=== PATIENT | male | born 1980 | race American Indian/Alaskan Native ===

== ENCOUNTER 2016-07-15 07:43 | Emergency (ER) | payer SELFPAY ==
[2016-07-15] MEDS ORDERED: TORADOL IM ONE (10:36)
[2016-07-15] MEDS ORDERED: DECADRON IM ONE (10:36)
[2016-07-15] MEDS ORDERED: CATAPRES PO ONE (10:36)
[2016-07-15] MEDS ORDERED: REGLAN IV ONE (11:30)
[2016-07-15 11:50] VITALS: BP 144/98
--- NOTE | 2016-07-15 11:58 | Emergency Department Report ---
ED General Adult HPI - General Chief complaint: Extremity Injury, Lower Stated complaint: LT ANKLE SWOLLEN Time Seen by Provider: 07/15/16 10:30 Source: patient Mode of arrival: Ambulatory Limitations: No Limitations - History of Present Illness Initial comments: 36-year-old male with history of uncontrolled hypertension presents to the ED complaining about swelling to the right ankle with associated pain. Patient denies injury. Patient states it is painful to walk on. A zapien denies erythema , induration, fever. -: Gradual, days(s) (2) Severity scale (0 -10): 8 - Related Data Previous Rx's Medication Instructions Recorded Last Taken Type Acetaminophen/Codeine [Tylenol 1 tab PO Q6H PRN #14 tab 07/15/16 Unknown Rx /Codeine # 3 tab] Diclofenac Sodium 75 mg PO BID #20 tablet. 07/15/16 Unknown Rx Allergies Allergy/AdvReac Type Severity Reaction Status Date / Time No Known Allergies Allergy Verified 04/29/16 17:02 ED Review of Systems ROS: Stated complaint: LT ANKLE SWOLLEN Other details as noted in HPI Constitutional: denies: chills, fever Eyes: denies: eye pain, eye discharge, vision change ENT: denies: ear pain, throat pain Respiratory: denies: cough, shortness of breath, wheezing Cardiovascular: denies: chest pain, palpitations Endocrine: no symptoms reported Gastrointestinal: denies: abdominal pain, nausea, diarrhea Genitourinary: denies: urgency, dysuria Musculoskeletal: joint swelling, arthralgia. denies: back pain Skin: denies: rash, lesions Neurological: denies: headache, weakness, paresthesias Psychiatric: denies: anxiety, depression Hematological/Lymphatic: denies: easy bleeding, easy bruising ED Past Medical Hx - Past Medical History Previous Medical History?: No - Surgical History Past Surgical History?: No - Social History Smoking Status: Current Every Day Smoker Substance Use Type: Alcohol - Medications Home Medications: Home Medications Medication Instructions Recorded Confirmed Last Taken Type Acetaminophen/Codeine [Tylenol 1 tab PO Q6H PRN #14 tab 07/15/16 Unknown Rx /Codeine # 3 tab] Diclofenac Sodium 75 mg PO BID #20 tablet. 07/15/16 Unknown Rx ED Physical Exam - General Limitations: No Limitations General appearance: alert, in no apparent distress - Head Head exam: Present: atraumatic, normocephalic - Eye Eye exam: Present: normal appearance - ENT ENT exam: Present: mucous membranes moist - Neck Neck exam: Present: normal inspection - Respiratory Respiratory exam: Present: normal lung sounds bilaterally. Absent: respiratory distress - Cardiovascular Cardiovascular Exam: Present: regular rate, normal rhythm. Absent: systolic murmur, diastolic murmur, rubs, gallop - GI/Abdominal GI/Abdominal exam: Present: soft, normal bowel sounds - Rectal Rectal exam: Present: deferred - Extremities Exam Extremities exam: Present: normal inspection - Expanded Lower Extremity Exam Right Lower Leg exam: Present: normal inspection, full ROM Ankle exam: Present: full ROM, tenderness, swelling. Absent: abrasion, laceration, ecchymosis, deformity, crepidus, dislocation, erythema Foot/Toe exam: Present: normal inspection, full ROM - Back Exam Back exam: Present: normal inspection - Neurological Exam Neurological exam: Present: alert, oriented X3 - Psychiatric Psychiatric exam: Present: normal affect, normal mood - Skin Skin exam: Present: warm, dry, intact, normal color. Absent: rash ED Course Vital Signs 07/15/16 07/15/16 07/15/16 07:59 10:50 11:50 Temperature 98.2 F Pulse Rate 72 96 H Respiratory 17 18 20 Rate Blood Pressure 177/127 177/122 Blood Pressure 144/98 [Left] O2 Sat by Pulse 96 Oximetry ED Medical Decision Making - Lab Data Vital Signs 07/15/16 07/15/16 07/15/16 07:59 10:50 11:50 Temperature 98.2 F Pulse Rate 72 96 H Respiratory 17 18 20 Rate Blood Pressure 177/127 177/122 Blood Pressure 144/98 [Left] O2 Sat by Pulse 96 Oximetry - Medical Decision Making Patient's vital signs improved to the ED per clonidine. Patient's symptoms appear to correlate with gout with no apparent injury. No signs of septic joint. Full range of motion Critical care attestation.: If time is entered above; I have spent that time in minutes in the direct care of this critically ill patient, excluding procedure time. ED Disposition Clinical Impression: Right ankle pain, Right ankle swelling Disposition: DISCHARGED TO HOME OR SELFCARE Is pt being admited?: No Does the pt Need Aspirin: No Condition: Good Instructions: Arthralgia (ED) Additional Instructions: Take medication as prescribed. Apply cool compress over affected joint. Follow -up with orthopedist if symptoms persist. Return to the ED if symptoms worsen. Prescriptions: Acetaminophen/Codeine [Tylenol /Codeine # 3 tab] 1 tab PO Q6H PRN #14 tab PRN Reason: Pain Diclofenac Sodium 75 mg PO BID #20 tablet. Referrals: PRIMARY CARE, [Primary Care Provider] - 3-5 Days MAIKOL JAMES MD [Staff Physician] - 3-5 Days Forms: Work/School Release Form(ED) Time of Disposition: 11:57
== END 2016-07-15 12:11 | disposition home or self-care (01) ==
LOC: ED 07:43
DX: M25.571 Pain in right ankle and joints of right foot (principal); M79.89 Other specified soft tissue disorders; F17.200 Nicotine dependence, unspecified, uncomplicated
CPT/HCPCS: 96372; 99282; J1100; J1885

== ENCOUNTER 2016-07-29 19:24 | Emergency (ER) | payer SELFPAY ==
[2016-07-29 19:38] VITALS: BP 200/124
--- NOTE | 2016-08-02 16:01 | ED Elopement Review ---
ED Pt Elopement review - Call Back decision Pt Call Back Decision: No action required
== END 2016-07-30 00:15 | disposition left against medical advice (07) ==
LOC: ED 19:24
DX: R21 Rash and other nonspecific skin eruption (principal); I10 Essential (primary) hypertension; Z53.21 Procedure and treatment not carried out due to patient leaving prior to being seen by health care provider

== ENCOUNTER 2016-07-30 10:04 | Emergency (ER) | payer SELFPAY ==
[2016-07-30] MEDS ORDERED: NORVASC PO ONE (10:52)
--- NOTE | 2016-07-30 10:59 | Emergency Department Report ---
Chief Complaint: Skin Rash Stated Complaint: RASH ALL OVER Time Seen by Provider: 07/30/16 10:51 - HPI History of Present Illness: 36 y/o male with a pass medical history of htn that is not taking any medications comes in today for rash all over. Patient denies any RUIZ. Noted his blood pressure is 177/127. - Exam Vital Signs: Vital Signs 07/30/16 10:45 Temperature 98.4 F Pulse Rate 68 Respiratory 18 Rate Blood Pressure 173/120 O2 Sat by Pulse 98 Oximetry Physical Exam: AxO times 3. NAD heart: rrr no murmurs lungs: ctab Skin: rash all over MSE screening note: Focused history and physical exam performed. Due to findings the following was ordered: BMP ordered and Norvasc 10 mg. Patient will be eval in the Main ER ED Disposition for MSE Condition: Stable
[2016-07-30 11:23] LABS: Basophils % (Auto) 0.6 % (0.0-1.8); Hematocrit 44.5 % (35.5-45.6); Hemoglobin 14.6 gm/dl (11.8-15.2); Mean Corpuscular HGB Conc 33 % (32-34); Mean Corpuscular Hemoglobin 29 pg (28-32); Mean Corpuscular Volume 89 fl (84-94); Red Blood Count 4.98 M/mm3 (3.65-5.03); Red Cell Distribution Width 14.9 % (13.2-15.2); White Blood Count 9.1 K/mm3 (4.5-11.0)
[2016-07-30 11:25] LABS: Platelet Count 142 K/mm3 (140-440)
[2016-07-30 12:10] LABS: Anion Gap 15 mmol/L; BUN/Creatinine Ratio 12.72; Blood Urea Nitrogen 14 mg/dL (9-20); Carbon Dioxide 28 mmol/L (22-30); Chloride 100.7 mmol/L (98-107); Glucose 95 mg/dL (75-100); Potassium 4.1 mmol/L (3.6-5.0); Sodium 140 mmol/L (137-145)
[2016-07-30] MEDS ORDERED: NORVASC ONE (13:18)
[2016-07-30] MEDS ORDERED: APRESOLINE IV ONE (14:42)
[2016-07-30] MEDS ORDERED: ATARAX PO ONE (14:52)
--- NOTE | 2016-07-30 14:52 | Emergency Department Report ---
ED General Adult HPI - General Chief complaint: Skin Rash Stated complaint: RASH ALL OVER Time Seen by Provider: 07/30/16 10:51 Source: patient, RN notes reviewed, old records reviewed Mode of arrival: Ambulatory Limitations: No Limitations - History of Present Illness Initial comments: This is a 36-year-old male. He is previously unknown to me. He does not have a primary care doctor. As far as he knows he denies chronic medical conditions. The patient presents to the ER with rash. The rash started on the right upper extremity, moved to the back, involves the abdomen, bilateral lower extremities. The rash has been present for one week. It is pruritic. It appears to be punctate. Patient sleeps in bed with his female friend, indicates she is not experiencing any symptoms. Patient denies headache, neck pain, chest pain, abdominal pain or shortness of breath. Patient was found to be incidentally hypertensive upon arrival to the ER. He was given Norvasc prior to my evaluation. Laboratory studies were sent, and did not indicate signs of end organ dysfunction. At the time of discharge, patient was found to be fairly hypertensive, and clonidine was recommended. The patient refused this. The patient is alert and oriented 3. The patient exhibits decision-making capacity. The patient is free from distracting injury. the risks of elevated blood pressure were discussed with the patient who verbalized understanding. He was instructed that hypertension/elevated blood pressure can lead to stroke, disability, heart attack, paralysis, loss of quality of life. Patient's rash appears to be consistent with insect bites. He will be discharged with permethrin, Atarax, instructions to follow up with outpatient primary care doctor. He will also be discharged with Norvasc. - Related Data Previous Rx's Medication Instructions Recorded Last Taken Type Acetaminophen/Codeine [Tylenol 1 tab PO Q6H PRN #14 tab 07/15/16 Unknown Rx /Codeine # 3 tab] Diclofenac Sodium 75 mg PO BID #20 tablet. 07/15/16 Unknown Rx Calamine/Zinc 8-8% [Calamine] 118 ml TP BID PRN #2 bottle 07/30/16 Unknown Rx Permethrin 5% [Acticin 5% CREAM] 1 applicatio TP ONCE #2 tube 07/30/16 Unknown Rx amLODIPine [Norvasc] 5 mg PO DAILY #30 tab 07/30/16 Unknown Rx hydrOXYzine HCL [Atarax] 25 mg PO Q6HR PRN #20 tablet 07/30/16 Unknown Rx Allergies Allergy/AdvReac Type Severity Reaction Status Date / Time No Known Allergies Allergy Verified 04/29/16 17:02 ED Review of Systems ROS: Stated complaint: RASH ALL OVER Other details as noted in HPI Constitutional: denies: fever Eyes: denies: eye discharge ENT: denies: epistaxis Respiratory: denies: cough Cardiovascular: denies: chest pain Gastrointestinal: denies: abdominal pain Genitourinary: as per HPI Musculoskeletal: as per HPI Skin: rash Neurological: as per HPI Psychiatric: as per HPI ED Past Medical Hx - Past Medical History Previous Medical History?: Yes Hx Hypertension: Yes (Does not currently take medication) - Surgical History Past Surgical History?: No - Social History Smoking Status: Current Every Day Smoker Substance Use Type: None, Alcohol - Medications Home Medications: Home Medications Medication Instructions Recorded Confirmed Last Taken Type Acetaminophen/Codeine [Tylenol 1 tab PO Q6H PRN #14 tab 07/15/16 Unknown Rx /Codeine # 3 tab] Diclofenac Sodium 75 mg PO BID #20 tablet.dr 07/15/16 Unknown Rx Calamine/Zinc 8-8% [Calamine] 118 ml TP BID PRN #2 bottle 07/30/16 Unknown Rx Permethrin 5% [Acticin 5% CREAM] 1 applicatio TP ONCE #2 tube 07/30/16 Unknown Rx amLODIPine [Norvasc] 5 mg PO DAILY #30 tab 07/30/16 Unknown Rx hydrOXYzine HCL [Atarax] 25 mg PO Q6HR PRN #20 tablet 07/30/16 Unknown Rx ED Physical Exam - General Limitations: No Limitations General appearance: alert, in no apparent distress - Head Head exam: Present: atraumatic, normocephalic - Eye Eye exam: Present: normal appearance, EOMI. Absent: nystagmus - ENT ENT exam: Present: normal exam, normal orophraynx, mucous membranes moist, normal external ear exam - Neck Neck exam: Present: normal inspection, full ROM. Absent: tenderness, meningismus - Respiratory Respiratory exam: Present: normal lung sounds bilaterally. Absent: respiratory distress, wheezes, rales, rhonchi, stridor, chest wall tenderness - Cardiovascular Cardiovascular Exam: Present: regular rate, normal rhythm, normal heart sounds. Absent: bradycardia, tachycardia, irregular rhythm, systolic murmur, diastolic murmur, rubs, gallop - GI/Abdominal GI/Abdominal exam: Present: soft, normal bowel sounds. Absent: distended, tenderness, guarding, rebound, rigid, pulsatile mass - Rectal Rectal exam: Present: deferred - Extremities Exam Extremities exam: Present: normal inspection, full ROM, normal capillary refill. Absent: tenderness, pedal edema, joint swelling, calf tenderness - Back Exam Back exam: Present: normal inspection, full ROM, rash noted. Absent: tenderness , CVA tenderness (R), CVA tenderness (L), muscle spasm, paraspinal tenderness, vertebral tenderness - Neurological Exam Neurological exam: Present: alert, oriented X3, normal gait, other (Extraocular movements intact. Tongue midline. No facial droop. Facial sensation intact to light touch in the V1, V2, V3 distribution bilaterally. 5 and 5 strength in 4 extremities.. Sensation is intact to light touch in 4 extremities.). Absent : motor sensory deficit - Psychiatric Psychiatric exam: Present: normal affect, normal mood - Skin Skin exam: Present: warm, rash, other (patient has numerous punctate lesions on the left upper right upper extremity and back, suggestive of arthropod bites) ED Course Vital Signs 07/30/16 07/30/16 07/30/16 10:45 13:21 15:52 Temperature 98.4 F Pulse Rate 68 75 59 L Respiratory 18 18 Rate Blood Pressure 173/120 178/120 Blood Pressure 215/145 [Left] O2 Sat by Pulse 98 97 Oximetry ED Medical Decision Making - Lab Data Result diagrams: 07/30/16 11:03 07/30/16 11:03 Vital Signs 07/30/16 07/30/16 07/30/16 10:45 13:21 15:52 Temperature 98.4 F Pulse Rate 68 75 59 L Respiratory 18 18 Rate Blood Pressure 173/120 178/120 Blood Pressure 215/145 [Left] O2 Sat by Pulse 98 97 Oximetry Lab Results 07/30/16 07/30/16 Range/Units 11:03 11:03 WBC 9.1 (4.5-11.0) K/mm3 RBC 4.98 (3.65-5.03) M/mm3 Hgb 14.6 (11.8-15.2) gm/dl Hct 44.5 (35.5-45.6) % MCV 89 (84-94) fl MCH 29 (28-32) pg MCHC 33 (32-34) % RDW 14.9 (13.2-15.2) % Plt Count 142 (140-440) K/mm3 Lymph % (Auto) 21.6 (13.4-35.0) % [place] % (Auto) 7.1 (0.0-7.3) % Eos % (Auto) 5.0 H (0.0-4.3) % Baso % (Auto) 0.6 (0.0-1.8) % Lymph # 2.0 (1.2-5.4) K/mm3 [place] # 0.6 (0.0-0.8) K/mm3 Eos # 0.5 H (0.0-0.4) K/mm3 Baso # 0.1 (0.0-0.1) K/mm3 Seg Neutrophils % 65.7 (40.0-70.0) % Seg Neutrophils # 6.0 (1.8-7.7) K/mm3 Sodium 140 (137-145) mmol/L Potassium 4.1 (3.6-5.0) mmol/L Chloride 100.7 (98-107) mmol/L Carbon Dioxide 28 (22-30) mmol/L Anion Gap 15 mmol/L BUN 14 (9-20) mg/dL Creatinine 1.1 (0.8-1.5) mg/dL Estimated GFR > 60 ml/min BUN/Creatinine Ratio 12.72 % Glucose 95 (75-100) mg/dL Calcium 9.0 (8.4-10.2) mg/dL Critical care attestation.: If time is entered above; I have spent that time in minutes in the direct care of this critically ill patient, excluding procedure time. ED Disposition Clinical Impression: Rash, Elevated blood pressure reading Disposition: LEFT AGAINST MEDICAL ADVICE Is pt being admited?: No Does the pt Need Aspirin: No Condition: Undetermined Instructions: Insect Bite or Sting (ED), Acute Rash (ED), Hypertension (ED) Additional Instructions: Take the medications as directed. I recommend having your house evaluated by an semiconductor processing technician for possible insects and bedbugs. Used the permethrin cream is directed on day one, and then again on day 7 if necessary. Take the blood pressure medication as directed. Blood pressure was noted to be very elevated in the emergency room today. Follow-up with the primary care doctor within the next week to 10 days. Elevated blood pressure. Long-term complications of hypertension/elevated blood pressure include stroke, heart attack, disability, , paralysis, loss of quality of life. Take the Norvasc medication as directed. The [facility] Pena is a local primary care doctor. The [facility] is a local medical clinic. Dr. Miner is a local buhr mill operator. If rash persists, follow up with her within the next month. Wash all clothing with soap and hot water. Return to the ER right away with chest pain, shortness of breath, intractable nausea or vomiting, fevers or chills, confusion, inability to tolerate liquid feeds. Prescriptions: amLODIPine [Norvasc] 5 mg PO DAILY #30 tab Calamine/Zinc 8-8% [Calamine] 118 ml TP BID PRN #2 bottle PRN Reason: Itching hydrOXYzine HCL [Atarax] 25 mg PO Q6HR PRN #20 tablet PRN Reason: Itching Permethrin 5% [Acticin 5% CREAM] 1 applicatio TP ONCE #2 tube Referrals: PRIMARY CAREMD [Primary Care Provider] - 3-5 Days HARVEY PENA MD [Staff Physician] - 3-5 Days [facility] [Provider Group] - 3-5 Days PETER MINER MD [Staff Physician] - 3-5 Days Forms: Work/School Release Form(ED)
[2016-07-30] MEDS ORDERED: CATAPRES ONE (15:47)
[2016-07-30] MEDS ORDERED: CATAPRES PO ONE (15:50)
[2016-07-30 15:53] VITALS: BP 215/145
== END 2016-07-30 15:53 | disposition left against medical advice (07) ==
LOC: ED 10:04
DX: R21 Rash and other nonspecific skin eruption (principal); I10 Essential (primary) hypertension; F17.200 Nicotine dependence, unspecified, uncomplicated
CPT/HCPCS: 36415; 80048; 85025; 99283